=== PATIENT | female | born 1945 | race Caucasian/White ===

== ENCOUNTER 2017-11-07 08:46 | Outpatient (CLI) | payer OTHER | END 2017-11-07 08:57 | disposition home or self-care (01) | LOC: NUCLEAR 08:46 | DX: G56.42 Causalgia of left upper limb (principal) | CPT/HCPCS: 78315; A9503 ==

== ENCOUNTER 2020-01-20 09:13 | Outpatient (CLI) | payer OTHER | END 2020-01-20 09:22 | disposition home or self-care (01) | LOC: SONOGRAMA 09:13 → MAMO-SONO 09:15 → SONOGRAMA 09:22 | PROVIDERS: ATTEND Internal Medicine | DX: M79.89 Other specified soft tissue disorders (principal) ==

== ENCOUNTER 2021-10-25 06:20 | Day surgery (SDC) | payer OTHER ==
[~2021-10-25 06:20] MED LIST: CRESTOR PO; HYZAA PO; ZETIA PO
== END 2021-10-25 11:35 | disposition home or self-care (01) ==
LOC: CIR.AMB 06:20
PROVIDERS: ATTEND Orthopaedic Surgery Hand Surgery
DX: G56.02 Carpal tunnel syndrome, left upper limb (principal); Z20.822 Contact with and (suspected) exposure to COVID-19

== ENCOUNTER 2024-08-20 13:02 | Outpatient (CLI) | payer OTHER | END 2024-08-20 13:10 | disposition home or self-care (01) | LOC: RAD 13:02 | PROVIDERS: ATTEND Physical Medicine & Rehabilitation | DX: M75.82 Other shoulder lesions, left shoulder (principal); M76.02 Gluteal tendinitis, left hip; M76.01 Gluteal tendinitis, right hip; M54.51 Vertebrogenic low back pain ==

== ENCOUNTER 2025-04-28 18:05 | Emergency (ER) | payer OTHER ==
[~2025-04-28] VITALS: Ht 149.9 cm; Wt 68.0 kg
[2025-04-28] MEDS ORDERED: ORPHENADRINE CITRATE 30 MG/ML AMPUL IM ONE (19:45)
[2025-04-28] MEDS ORDERED: KETOROLAC TROMETHAMINE 30 MG VIAL IM ONE (19:45)
[2025-04-28] MEDS ORDERED: DEXAMETHASONE SODIUM PHOSPHATE 4 MG/ML VIAL IM ONE (19:45)
[2025-04-28] MEDS ORDERED: DEXAMETHASONE SODIUM PHOSPHATE 4 MG/ML VIAL ONE (19:54)
[2025-04-28] MEDS ORDERED: ORPHENADRINE CITRATE 30 MG/ML AMPUL ONE (19:54)
[2025-04-28] MEDS ORDERED: NORFLEX100MG PO (22:32)
[2025-04-28] MEDS ORDERED: KETO10TA2 PO (22:32)
[2025-04-28] MEDS ORDERED: PEPCID AC20 MG PO (22:32)
[2025-04-28] MEDS ORDERED: MEDROLPACK PO (22:32)
== END 2025-04-28 23:16 | disposition home or self-care (01) ==
LOC: ER 18:05
DX: M62.830 Muscle spasm of back (principal); M62.838 Other muscle spasm; M54.40 Lumbago with sciatica, unspecified side; M79.606 Pain in leg, unspecified; I10 Essential (primary) hypertension
CPT/HCPCS: 72100; 96372; 99283; J1100; J1885; J2360

== ENCOUNTER 2025-05-12 08:51 | Outpatient (CLI) | payer OTHER ==
[~2025-05-12 08:51] MED LIST changes: +KETO10TA2 PO; +MEDROLPACK PO; +NORFLEX100MG PO; +PEPCID AC20 MG PO
== END 2025-05-12 08:53 | disposition home or self-care (01) ==
LOC: SONOGRAMA 08:51
PROVIDERS: ATTEND Internal Medicine Rheumatology
DX: M75.52 Bursitis of left shoulder (principal)